=== PATIENT | female | born 1955 | race American Indian/Alaskan Native ===

== ENCOUNTER → 2021-01-14 | Outpatient (CLI) | payer MEDICARE, OTHER ==
[~2021-01-14] MED LIST: ALBU8HFA2 INH; ALBU90OI INH; AMOX500 PO; AZIT250 PO; CEPH500; CEPH500 PO; CODACE30 PO; Colace100 MG PO; DEXT10ER; DEXT15ER; DEXT15ER PO; DIPH50; FLUT110OIA IH; HYDACE5 PO; IBUP800 PO; IPRAOI INH; MODA200 PO; NAPR500; PENVK500 PO; TRIA80TC TOP; [UNRECOGNIZED DRUG - OTHER]
[2021-01-18 12:12] LABS: HPV 16 Negative (Negative); HPV 18 Negative (Negative); HPV OTHER HR TYPES Negative (Negative)
== END ==
LOC: LAB SHORT 11:20 → LAB 11:20
PROVIDERS: Family Medicine
DX: Z01.419 Encounter for gynecological examination (general) (routine) without abnormal findings (principal)
CPT/HCPCS: 87624; G0123

== ENCOUNTER → 2022-12-14 | Outpatient (CLI) | payer MEDICARE, OTHER ==
[2022-12-18 16:09] LABS: HPV 16 Negative (Negative); HPV 18 Negative (Negative); HPV OTHER HR TYPES Negative (Negative)
== END | disposition home or self-care (01) ==
LOC: LAB SHORT 15:30 → LAB 15:30
PROVIDERS: Family Medicine
DX: Z12.4 Encounter for screening for malignant neoplasm of cervix (principal)
CPT/HCPCS: 87624; G0145

== ENCOUNTER → 2023-07-04 | Outpatient (CLI) | payer MEDICARE, OTHER | END | disposition home or self-care (01) | LOC: LAB SHORT 09:15 → LAB 09:15 | DX: K30 Functional dyspepsia (principal) | CPT/HCPCS: 87338 ==